=== PATIENT | female | born 1970 | race Caucasian/White ===

== ENCOUNTER 2017-11-13 17:54 | Emergency (ER) | payer BC ==
[~2017-11-13] VITALS: Ht 154.9 cm; Wt 60.8 kg
[2017-11-13 18:02] VITALS: Ht 154.9 cm; Wt 60.8 kg
[2017-11-13 18:58] LABS: UA SPECIFIC GRAVITY <=1.005 (1.005-1.035); microscopic required? YES; urine erythrocyte TRACE (NEGATIVE)
[2017-11-13 19:04] LABS: BASOPHIL % 0.2 % (0-2); RED CELL DISTRIBUTION WIDTH 12.9 % (11.5-14.5)
[2017-11-13 19:08] LABS: CALCIUM 8.3 mg/dL (8.5-10.1); CHLORIDE SERUM 98 mmol/L (98-107); CREATININE SERUM 0.7 mg/dL (0.6-1.0); GFR1 > 60 mL/min; GLUCOSE SERUM 112 mg/dL (74-106); POTASSIUM SERUM 3.4 mmol/L (3.5-5.1); SODIUM SERUM 135 mmol/L (136-145)
[2017-11-13 19:20] LABS: ALBUMIN 2.6 g/dL (3.4-5.0); ALKALINE PHOSPHATASE 343 U/L (46-116); ALT/SGPT 197 U/L (14-59); AST/SGOT 128 U/L (15-37); TOTAL PROTEIN, SERUM 8.3 g/dL (6.4-8.2)
[2017-11-13 19:32] LABS: CK-MB < 0.5 ng/mL (0-3.6); CREATINE KINASE 68 U/L (26-192)
[2017-11-13 20:10] LABS: PLATELET COUNT 295 x10^3mcL (130-400)
[2017-11-13 20:41] VITALS: BP 113/77
== END 2017-11-13 20:41 | disposition home or self-care (01) ==
LOC: ED 17:54
PROVIDERS: Emergency Medicine
DX: J20.8 Acute bronchitis due to other specified organisms (principal); M54.2 Cervicalgia
CPT/HCPCS: 83880; J0780; J1885; Q0092